=== PATIENT | female | born 1950 | race Caucasian/White ===

== ENCOUNTER 2016-12-21 10:18 | Observation (INO) | payer OTHER, MEDICARE, BC ==
[2016-12-21 10:44] LABS: BASOPHILS 0.3 % (0-2); EOSINOPHILS 0.1 % (0-7); HEMATOCRIT 42.9 % (36.0-48.0); HEMOGLOBIN 14.5 g/dL (12-16); IMMATURE GRANULOCYTES 0.2 % (0-5); LYMPHOCYTES 7.1 % (15-50); MCH 31.4 pg (26.0-34.0); MCHC 33.8 g/dL (31.0-37.0); MCV 92.9 fL (80.0-100.0); MEAN PLATELET VOLUME 11.2 fL (7.4-10.4); MONOCYTES 3.7 % (2-11); NEUTROPHILS 88.6 % (40-80); PLATELET COUNT 239 10x3/uL (130-400); RBC 4.62 10x6/uL (4.00-5.40); RDW 13.1 % (11.5-14.5); WBC 10.6 10x3/uL (4.8-10.8)
[2016-12-21 10:57] LABS: ALBUMIN 4.4 g/dL (3.4-5.0); ALKALINE PHOSPHATASE 77 U/L (46-116); ALT (SGPT) 29 U/L (10-68); BILIRUBIN - TOTAL 0.59 mg/dL (0.2-1.3); CALC OSMOLALITY 275 mosm/kg (275-300); CALCIUM 9.8 mg/dL (8.5-10.1); CARBON DIOXIDE 26.7 mmol/L (21.0-32.0); CHLORIDE - SERUM 100 mmol/L (98-107); CREATININE - SERUM 0.9 mg/dL (0.6-1.3); GLUCOSE 122 mg/dL (74-106); POTASSIUM - SERUM 4.3 mmol/L (3.5-5.1); PROTEIN - SERUM 7.9 g/dL (6.4-8.2); SODIUM 138 mmol/L (136-145); UREA NITROGEN 11 mg/dL (7-18); eGFR NON AFRICAN AMERICAN 67 mL/min (90-120)
[2016-12-21 11:09] LABS: CKMB 1.1 U/L (0.0-3.6); CREATINE KINASE 108 UL (21-215); TROPONIN-I < 0.017 ng/mL (0.000-0.060)
[2016-12-21] MEDS ORDERED: LIPITOR40 MG PO (14:21)
[2016-12-21] MEDS ORDERED: PEPCID20 MG PO (14:21)
[2016-12-21 16:29] VITALS: BP 141/73
[2016-12-21 16:32] VITALS: BP 148/77
[2016-12-21 16:33] VITALS: BP 127/79
[2016-12-21 16:34] VITALS: BP 141/75; BMI 20.5
[2016-12-21 17:38] LABS: APPEARANCE CLEAR (CLEAR); BILIRUBIN NEGATIVE (NEGATIVE); COLOR YELLOW (YELLOW); GLUCOSE NEGATIVE (NEGATIVE); KETONE NEGATIVE (NEGATIVE); NITRITE NEGATIVE (NEGATIVE); PROTEIN NEGATIVE (NEGATIVE); SPECIFIC GRAVITY 1.015 (1.005-1.020); UROBILINOGEN NORMAL (NORMAL)
[2016-12-21 20:00] VITALS: BP 108/76
[2016-12-22 00:04] VITALS: BP 100/51
[2016-12-22 04:00] VITALS: BP 105/65
[2016-12-22 05:35] LABS: BASOPHILS 0.5 % (0-2); EOSINOPHILS 3.4 % (0-7); HEMATOCRIT 36.9 % (36.0-48.0); HEMOGLOBIN 12.4 g/dL (12-16); IMMATURE GRANULOCYTES 0.2 % (0-5); LYMPHOCYTES 24.3 % (15-50); MCH 31.2 pg (26.0-34.0); MCHC 33.6 g/dL (31.0-37.0); MCV 92.7 fL (80.0-100.0); MEAN PLATELET VOLUME 11.2 fL (7.4-10.4); MONOCYTES 9.5 % (2-11); NEUTROPHILS 62.1 % (40-80); RBC 3.98 10x6/uL (4.00-5.40)
[2016-12-22 05:37] LABS: PLATELET COUNT 188 10x3/uL (130-400); WBC 6.5 10x3/uL (4.8-10.8)
[2016-12-22 05:45] LABS: ALBUMIN 3.2 g/dL (3.4-5.0); ALKALINE PHOSPHATASE 56 U/L (46-116); ALT (SGPT) 25 U/L (10-68); BILIRUBIN - TOTAL 0.54 mg/dL (0.2-1.3); CALC OSMOLALITY 282 mosm/kg (275-300); CALCIUM 8.4 mg/dL (8.5-10.1); CARBON DIOXIDE 24.8 mmol/L (21.0-32.0); CHLORIDE - SERUM 108 mmol/L (98-107); CREATININE - SERUM 0.8 mg/dL (0.6-1.3); GLUCOSE 95 mg/dL (74-106); POTASSIUM - SERUM 3.7 mmol/L (3.5-5.1); PROTEIN - SERUM 5.9 g/dL (6.4-8.2); SODIUM 143 mmol/L (136-145); UREA NITROGEN 8 mg/dL (7-18); eGFR NON AFRICAN AMERICAN 76 mL/min (90-120)
--- NOTE | 2016-12-22 07:30 | NUR ---
RECIEVED PT DURING WALKING ROUNDS. NO COMPLAINTS OF PAIN OR DISCOMFORT AT THIS TIME. ASSESSMENT DONE PER FLOWSHEET. BED IN LOW POSITION AND CALL LIGHT WITHIN REACH. WILL CONTINUE TO MONITOR.
[2016-12-22 09:20] VITALS: BP 127/70
--- NOTE | 2016-12-22 11:40 | NUR ---
PT UP WALKING AROUND UNIT, WITH NO SIGNS OF DISCOMFORT. PT AWAITING DISCHARGE AT THIS TIME.
[2016-12-22 12:31] VITALS: BP 116/68
--- NOTE | 2016-12-22 13:24 | NUR ---
IV REMOVED AND PT GIVEN DISCHARGE INSTRUCTIONS, PT DISCHARGED TO HOME WITH FAMILY MEMBER.
== END 2016-12-22 13:25 | disposition home or self-care (01) ==
LOC: D.ER 10:18 → D.MS 12:51 → OBSVTIME 12:51 → D.MS 12:51
PROVIDERS: Emergency Medicine; ADMIT Family Medicine
DX: R55 Syncope and collapse (principal); I34.1 Nonrheumatic mitral (valve) prolapse

== ENCOUNTER → 2018-02-09 10:07 | Outpatient (CLI) | payer MEDICARE, BC ==
--- NOTE | ~2018-02-09 | ST ---
PATIENT:UZMA MCNEIL MEDICAL RECORD: [id number] SEX: F LOCATION:[facility] ORDER #: ADMISSION DATE: 02/09/18 AGE OF PATIENT: 68 REFERRING PHYSICIAN: INTERPRETING PHYSICIAN: DARLENE VILLA MD DATE OF SERVICE: 02/09/2018 PROCEDURE: Nuclear stress test. INDICATION: Angina, shortness of breath, dyspnea on exertion. PROCEDURE IN DETAIL: She was exercised on standard Crispin protocol for 7 minutes 40 seconds, completing stage II with 29.7 mCi injected at peak stress, 8.6 mCi of sestamibi were used previously for rest images. FINDINGS: Gated SPECT reveals preserved ejection fraction at 74% with good wall motioning and thickening and brightening throughout all segments. SPECT imaging Cardiolite was used as myocardial fusion agent. There is homogeneous uptake throughout all segments at rest and stress with no evidence of inducible ischemia or previous infarction. OVERALL IMPRESSION: 1. This is a normal nuclear stress test with no evidence of inducible ischemia or previous infarction. 2. Gated SPECT reveals preserved ejection fraction at 74% in this patient with ongoing symptomatology, the current scan does not suggest the presence of hemodynamically significant coronary disease to evaluate noncardiac etiology of chest pain. TRANSINT:[id number] Voice Confirmation ID: [id number] DOCUMENT ID: [id number] DARLENE VILLA MD at 1925 CC: CHARLENE MILAN MD [id number] DICTATION DATE: 02/09/18 1556 MEMS DEVICE SCIENTIST: 02/10/18 0415 DEP CLI 02/09/18 [facility] [address] [place] [address]
[~2018-02-09 10:07] MED LIST: LIPITOR40 MG PO; PEPCID20 MG PO
== END | disposition home or self-care (01) ==
LOC: D.HCCARDIO 10:07
DX: I20.9 Angina pectoris, unspecified (principal)

== ENCOUNTER 2018-03-06 08:28 | Outpatient (CLI) | payer MEDICARE, BC ==
[~2018-03-06] VITALS: Ht 160 cm; Wt 49.5 kg
--- NOTE | ~2018-03-06 | OP ---
PATIENT NAME: UZMA MCNEIL MEDICAL RECORD: [id number] :54 LOCATION:[facility] ADMISSION DATE: SURGEON: DARLENE VILLA MD DATE OF OPERATION: 03/06/2018 PROCEDURES: 1. Left heart catheterization. 2. Selective coronary angiography. 3. Left ventriculogram. INDICATION: Chest pain compatible with angina. PROCEDURE IN DETAIL: After informed consent was obtained and after a detailed description of the risks, benefits as well as alternative therapies, the patient elected to proceed with angiogram. The right radial area was prepped and draped in normal sterile fashion. Right radial artery was cannulated via modified Seldinger technique with placement of 5-Mongolian sheath. All catheters exchanged through this sheath. FINDINGS: Left ventriculogram was performed in standard 30-degree REDMAN view, reveals good cardiac wall motion throughout all segments. Overall ejection fraction estimated 60%. SELECTIVE CORONARY ANGIOGRAPHY: Left main, left anterior descending, left circumflex, right coronary artery have only minimal irregularities, no flow-limiting stenosis. OVERALL IMPRESSION: Minimal coronary artery disease is present. No flow-limiting stenosis. Chest pain is noncardiac in etiology. No further cardiac workup needs to be ascertained. TRANSINT:[id number] Voice Confirmation ID: [id number] DOCUMENT ID: [id number] DARLENE VILLA MD at 1324 CC: [id number] DICTATION DATE: 03/06/18 1229 MACHINE ROPE MAKER: 03/06/18 1238 DEP CLI 03/06/18 [place] [id number]
--- NOTE | ~2018-03-06 | HEMODYNAMI ---
PATIENT:UZMA MCNEIL MEDICAL RECORD: [id number] : 54 LOCATION:[facility] ADMISSION DATE: 03/06/18 Generatedon:03/06/201812:28 Patient name: UZMA MCNEIL Patient #: [id number] SSN: D OB: 1950 Date of study: 03/06/2018 Page: Of Hemodynamic Procedure Report Patient Data Patient Demographics Procedure consent was obtained First Name: UZMA Gender: Female Last Name: EWA : 1950 Middle Initial: EILEEN Age: 68 year(s) Patient #: [id number] Race: Unknown Additional ID: [id number] Contact details [address]: [address] [place] [address] State: [place] City: [place] Zip code: [address] Admission Admission Data Admission Date: 03/06/2018 Admission Time: 8:28 Arrival Date: 03/06/2018 Arrival Time: 10:30 Admit Source: Other Insurance Payor: Medicare Height (in.): 63 BSA: 1.51 (m2) Height (cm.): 160.02 BMI: 19.66 (kg/m2) Weight (lbs.): 111 Weight (kg.): 50.35 Procedure Procedure Types Cath Procedure Diagnostic Procedure [facility] LH w/Coronaries Procedure Description Procedure Date Procedure Date: 03/06/2018 Procedure Start Time: 12:18 Procedure End Time: 12:25 Procedure Staff Name Function Ed Ingram MD Performing Physician Lupe Dial RT Monitor Latonya Boyce RT Scrub Qamar Parry RN Nurse Procedure Data Cath Procedure Fluoroscopy Diagnostic fluoroscopy Total fluoroscopy Time: 1.4 time: 1.4 min min Diagnostic fluoroscopy Total fluoroscopy dose: 133 dose: 133 mGy mGy Contrast Material Contrast Material Type Amount (ml) Isovue 300 35 Entry Location Entry Primary Successful Side Size Upsize Upsize Entry Closure Ramos ccessful Closure Location (Fr) 1 (Fr) 2 (Fr) Remarks Device Remarks Radial Right 6 Fr Mechanical artery Short Compression Estimated blood loss: 5 ml Diagnostic catheters Device Type Used For End Catheter Placement DIAGNOSTIC [place] 110cm 5 Multi-vessel Fr catheter ([id number]) Angiography Procedure Complications No complications Procedure Medications Medication Administration Route Dosage 0.9% NaCl I.V. 100 ml/hr Oxygen etCO2 Nasal cannula 2 l/min Heparin Flush Bag added to field 2 bags (1000units/500ml NS) Lidocaine 2% added to field 20 Radial Cocktail added to field 1 syringe (Verapomil 2mg/Nitro 400mcg/Heparin 1500units) Versed I.V. 2 mg Fentanyl I.V. 100 mcg Radial Cocktail I.A. 1 syringe (Verapomil 2mg/Nitro 400mcg/Heparin 1500units) Fentanyl I.V. 50 mcg Hemodynamics Rest BSA: 1.51 (m2) O2 Consumption: Estimated: 133.33 (ml/min) O2 Consumption indexed : Estimated:88.3 (ml/min/m) Heart Rate: 57 (bpm) Pressure Samples Time Site Value (mmHg) Purpose Heart Use Rate(bpm) 12:20 LV 39/13,16 Snapshot 73 Snapshots Pre Cath Intra NCS Post Cath Vital Signs Time Heart Resp SPO2 etCO2 NIBP Rhythm Pain Sedation Rate (ipm) (%) (mmHg) (mmHg) Status Level (bpm) 12:14:30 71 14 99 34.3 103/63(76) NSR 0 (11) 10(A) , No pain 12:18:32 64 17 100 34.3 111/60(97) NSR 0 (11) 10(A) , No pain 12:22:44 93 19 96 0 87/39(55) NSR 0 (11) 10(A) , No pain Medications Time Medication Route Dose Verified Delivered Reason Notes Effectiveness by by 12:13:13 0.9% NaCl I.V. 100 Qamar Qamar Per ml/hr Brinda Parry physician RN RN 12:13:24 Oxygen etCO2 2 l/min Qamar Qamar Per Nasal Brinda Parry physician cannula RN RN 12:13:43 Heparin Flush added 2 bags Qamar Qamar used for Bag to Brinda Parry procedure (1000units/500ml field RN RN NS) 12:13:56 Lidocaine 2% added 20ml Qamar Qamar for local to vial Lorigan Lorigan anesthetic field RN RN 12:14:13 Radial Cocktail added 1 Qamar Qamar used for (Verapomil to syringe Brinda Parry procedure 2mg/Nitro field RN RN 400mcg/Heparin 1500units) 12:16:47 Versed I.V. 2 mg Qamar Qamar for sedation Brinda Parry RN, RN 12:16:55 Fentanyl I.V. 100 mcg Qamar Qamar for sedation Brinda Parry RN, RN 12:20:14 Radial Cocktail I.A. 1 Qamar Ed for (Verapomil syringe Brinda Ingram MD vasodilation 2mg/Nitro RN 400mcg/Heparin 1500units) 12:20:24 Fentanyl I.V. 50 mcg Qamar Qamar for sedation Brinda Parry RN panel sewer Log Time Note 11:40:24 Qamar Parry RN sent for patient. Start room use. 11:58:03 Informed consent obtained and on chart 11:58:38 Diagnostic Cath Status : Elective 11:59:35 Time tracking: Regular hours (M-F 7:00 - 5:00) 11:59:39 Plan of Care:Hemodynamics will remain stable., Cardiac rhythm will remain stable., Comfort level will be maintained., Respiratory function will remain adequate., Patient/ family verbilizes understanding of procedure., Procedure tolerated without complication., Recovers from procedure without complications.. 12:00:25 Admit Source: Other 12:00:28 Arrival Date: 03/06/2018 10:30:00 AM 12:00:36 Insurance Payor : Medicare 12:00:53 Patient Height : 63 inches 12:00:56 Patient Weight : 111 lbs 12:13:12 Patient received from Pre/Post Procedure Room to CCL 2 Alert and oriented. Tansferred to table in Supine position. 12:13:13 0.9% NaCl 100 ml/hr I.V. was administered by Qamar Parry RN; Per physician; 12:13:13 Warm blankets applied, and leon hugger turned on for patient comfort. 12:13:14 Correct patient and procedure confirmed by team. 12:13:14 ECG and BP/O2 sat monitors applied to patient. 12:13:15 Vital chart was started 12:13:17 Baseline sample Acquired. 12:13:24 Oxygen 2 l/min etCO2 Nasal cannula was administered by Qamar Parry RN; Per physician; 12:13:27 Rhythm: sinus rhythm 12:13:29 Full Disclosure recording started 12:13:32 H&P Date Dictated: 03/06/2018 Within 30 days and on chart., H&P Addendum completed by physician on day of procedure. (MUST COMPLETE FOR ALL OUTPATIENTS). 12:13:34 Pre-procedure instructions explained to patient. 12:13:35 Pre-op teaching completed and patient verbalized understanding. 12:13:36 Family in waiting room. 12:13:37 Patient NPO since Midnight. 12:13:38 Is the patient allergic to Iodine/contrast media? No. 12:13:40 Was the patient premedicated? No 12:13:43 Heparin Flush Bag (1000units/500ml NS) 2 bags added to field was administered by Qamar Parry RN; used for procedure; 12:13:44 Is patient on blood thinner?Yes 12:13:47 ACC The patient was administered the following blood thiners within the last 24 hours: ACCPlavix 12:13:49 Patient diabetic? No. 12:13:53 Previous problem with sedation/anesthesia? Yes nausea 12:13:55 Snore? No 12:13:56 Lidocaine 2% 20ml vial added to field was administered by Qamar Parry RN; for local anesthetic; 12:13:56 Sleep apnea? No 12:13:57 Deviated septum? No 12:13:58 Opens mouth fully? Yes 12:13:58 Sticks out tongue? Yes 12:14:00 Airway obstruction? No ? 12:14:03 Dentures? No ? 12:14:13 Radial Cocktail (Verapomil 2mg/Nitro 400mcg/Heparin 1500units) 1 syringe added to field was administered by Qamar Parry RN; used for procedure; 12:14:16 Pre procedure: right dorsailis pedis pulse 2+ Normal; easily identifiable; not easily obliterated 12:14:18 Pre procedure: left dorsailis pedis pulse 2+ Normal; easily identifiable; not easily obliterated 12:14:20 Patient pain scale 0/10 ?. 12:14:30 IV patent on arrival in left forearm with 0.9% NaCl at [facility]. 12:14:32 Lab results completed and on chart. 12:14:37 Right Radial & Right Groin area was prepped with chlora-prep and draped in sterile fashion 12:14:38 Alarms reviewed by R. N. 12:14:38 Sharps counted by scrub and verified by R.N. 12:14:40 Physician arrived 12:14:40 --------ALL STOP TIME OUT------ 12:14:41 Final Timeout: patient, procedure, and site verified with staff and physician. All members of the team are in agreement. 12:14:42 Right Radial & Right Groin site verified by team. 12:14:45 Physical assessment completed. ASA score P 2 - A patient with mild systemic disease as per Ed Ingram MD. 12:14:49 Sedation plan: IV Moderate Sedation Medication:Versed, Fentanyl 12:14:59 Use device set Radial Dx or PCI 12:15:01 ACIST Syringe (89734) opened to sterile field. 12:15:01 Medline Cath Pack ([id number]) opened to sterile field. 12:15:02 Bag Decanter (2002S) opened to sterile field. 12:15:02 DIAGNOSTIC WIRE .035 260cm J wire (840585) opened to sterile field. 12:15:03 ACIST Hand Control (26156) opened to sterile field. 12:15:03 ACIST Manifold (44791) opened to sterile field. 12:15:04 Tegaderm 4 x 4 (1626W) opened to sterile field. 12:15:04 MBrace Wrist Support ([id number]) opened to sterile field. 12:15:06 SHEATH 6FR Slender (53-1060) opened to sterile field. 12:16:47 Versed 2 mg I.V. was administered by Qamar Parry RN; for sedation; 12:16:55 Fentanyl 100 mcg I.V. was administered by Qamar Parry RN; for sedation; 12:18:22 Procedure started. 12:18:43 Local anesthetic to right radial artery with Lidocaine 2% by Ed Ingram MD.INITIAL ACCESS ONLY 12:18:59 A 6 Fr Short sheath was inserted into the Right Radial artery 12:19:13 A DIAGNOSTIC [place] 110cm 5 Fr catheter (554341) was advanced over the wire and used for Multi-vessel Angiography. 12:20:14 Radial Cocktail (Verapomil 2mg/Nitro 400mcg/Heparin 1500units) 1 syringe I.A. was administered by Ed Ingram MD; for vasodilation; 12:20:24 Fentanyl 50 mcg I.V. was administered by Qamar Parry RN; for sedation; 12::33 LV hemodynamics recorded. 12::34 LV gram done using REDMAN 12:20:37 Injector settings: Ml/sec: 5, Volume: 15, 12:20:42 EF : 60 % 12:21:14 LCA angiography performed. 12::17 Injector settings: Ml/sec: 3, Volume: 6, 12:22:24 RCA angiography performed. 12::32 Injector settings: Ml/sec: 3, Volume: 6, 12:23:18 Catheter removed. 12:23:20 TR BAND Standard ([id number]) opened to sterile field. 12:23:32 Sheath removed intact; hemostasis achieved with Mechanical Compression to the Right Radial artery. 12:23:34 Procedure ended.(Physican Out) 12:24:02 Fluoroscopy time 01.40 minutes. 12:24:05 Fluoroscopy dose: 133 mGy 12:24:05 Flurop Dose total: 133 12:24:09 Contrast amount:Isovue 300 35ml. 12:24:11 Sharps counted by scrub and verified by R.N. 12:24:14 TR band inflated with 10cc of air. 12:24:15 Insertion/operative site no bleeding no hematoma. 12:24:25 Post right radial artery:stable 12:24:26 Post Procedure Pulses reassessed and unchanged 12:24:29 Post procedure rhythm: unchanged. 12:24:31 Estimated blood loss: 5 ml 12:24:33 Post procedure instruction explained to patient.Patient verbalizes understanding. 12:24:34 Patient needs reinforcement of post procedure teaching. 12:24:51 Procedure and supply charges have been captured, reviewed, submitted and are correct. 12:24:56 Procedure Complication : No complications 12:25:05 Vital chart was stopped 12:25:05 See physician's report for complete and final results. 12:25:30 Report given to Pre/Post Procedure Room. 12:25:33 Patient transfered to Pre/Post Procedure Room with Stretcher. 12:25:35 Procedure ended. 12::35 Full Disclosure recording stopped 12::39 End room use (Document Last) Device Usage Item Name Manufacture Quantity Catalog Hospital Part Current Minimal Lot# / Number Charge Number Stock Stock Serial# Code ACIST Acist 1 44730 321008 287669 052740 20 Syringe Medical (07234) Systems Inc Medline Medline 1 [id number] 094208 42182 584399 5 Cath Pack ([id number]) Bag Microtek 1 2001S 104121 49200 973359 5 Decanter Medical Inc. (2001S) DIAGNOSTIC [place] 1 412013 057721 027308 126029 30 WIRE .035 260cm J wire (508539) ACIST Hand Acist 1 03476 625764 876852 550176 5 Control Medical (23286) Systems Inc ACIST Acist 1 83330 231621 755449 011289 5 Manifold Medical (81803) Systems Inc Tegaderm 4 3M 1 1626W 557126 932505 143686 5 x 4 (1626W) MBrace Advanced 1 140-0250-00 471815 02710 836446 5 Wrist Vascular Support Dynamics ([id number]) SHEATH 6FR Terumo 1 [id number] 693721 952258 021405 5 Slender (80-1060) DIAGNOSTIC Terumo 1 40-3403 274762 230073 434659 5 [place] 110cm 5 Fr catheter (634953) TR BAND Terumo 1 [id number] 380059 736716 566142 40 Standard ([id number]) Signature Audit [place] Stage Time Signature Unsigned Intra-Procedure 03/06/2018 Lupe Dial 12:28:51 PM RT(R) Signatures Monitor : Lupe Dial RT Signature : Date : Time : [facility] [address] [place] [address]
[2018-03-06 09:37] VITALS: BP 117/66; Ht 160 cm; Wt 49.5 kg
[2018-03-06 09:49] LABS: BASOPHILS 0.6 % (0-2); EOSINOPHILS 2.4 % (0-7); HEMATOCRIT 40.6 % (36.0-48.0); HEMOGLOBIN 13.5 g/dL (12-16); IMMATURE GRANULOCYTES 0.1 % (0-5); LYMPHOCYTES 15.7 % (15-50); MCH 31.2 pg (26.0-34.0); MCHC 33.3 g/dL (31.0-37.0); MCV 93.8 fL (80.0-100.0); MEAN PLATELET VOLUME 11.1 fL (7.4-10.4); MONOCYTES 8.9 % (2-11); NEUTROPHILS 72.3 % (40-80); RBC 4.33 10x6/uL (4.00-5.40); RDW 13.4 % (11.5-14.5); WBC 8.3 10x3/uL (4.8-10.8)
[2018-03-06 09:53] LABS: PLATELET COUNT 273 10x3/uL (130-400)
[2018-03-06 10:02] LABS: CALC OSMOLALITY 282 mosm/kg (275-300); CALCIUM 8.7 mg/dL (8.5-10.1); CARBON DIOXIDE 26.5 mmol/L (21.0-32.0); CHLORIDE - SERUM 104 mmol/L (98-107); CREATININE - SERUM 0.7 mg/dL (0.6-1.3); GLUCOSE 87 mg/dL (74-106); POTASSIUM - SERUM 3.9 mmol/L (3.5-5.1); SODIUM 142 mmol/L (136-145); UREA NITROGEN 15 mg/dL (7-18); eGFR NON AFRICAN AMERICAN 89 mL/min (90-120)
== END 2018-03-06 14:35 | disposition home or self-care (01) ==
LOC: D.CATH 08:28
PROVIDERS: Internal Medicine Interventional Cardiology
DX: R07.89 Other chest pain (principal); I25.10 Atherosclerotic heart disease of native coronary artery without angina pectoris; Z01.812 Encounter for preprocedural laboratory examination